=== PATIENT | female | born 1950 | race Caucasian/White ===

== ENCOUNTER 2022-09-17 19:16 | Emergency (ER) | payer MEDICARE ==
[2022-09-17 20:46] LABS: #Eosinphils 0.1 10x3/uL (0.0-0.5); #Monocytes 0.4 10x3/uL (0.0-1.1); #Neutrophils 5.7 10x3/uL (1.5-8.4); %Basophils 0.4 % (0.0-2.0); %Lymphocytes 8.2 % (18.0-47.0); %Monocytes 5.7 % (0.0-10.0); %Neutrophils 84.4 % (40.0-75.0); Hemoglobin 10.6 g/dL (12.0-15.5); Mean Corpuscular HGB CONC 32.2 g/dL (32.0-36.0); Mean Corpuscular Hemoglobin 28.6 pg (27.0-33.0); Mean Corpuscular Volume 88.7 fl (81.6-98.3); Mean Platelet Volume 9.9 fl (7.4-10.4); Platelet Count 200 10x3/uL (150-450); RBC Distribution Width 14.9 % (11.5-14.5); Red Blood Cell (RBC) Count 3.71 10x6/uL (3.90-5.03); White Blood Cell (WBC) Count 6.7 10x3/uL (3.5-10.5)
[2022-09-17 20:58] LABS: ALT (SGPT) 33 U/L (8-55); AST (SGOT) 41 U/L (5-34); Alkaline Phosphatase 229 U/L (40-110); Anion Gap 14 mmol/L (10-20); BUN (Urea Nitrogen) 24 mg/dL (9.8-20.1); Bilirubin, Total 0.9 mg/dL (0.2-1.2); Calc. Creatinine Clearance 0 mL/min (70-130); Calcium 8.7 mg/dL (7.8-10.44); Carbon Dioxide 27 mmol/L (23-31); Chloride 101 mmol/L (98-107); Estimated GFR 46; Globulin 3.3 g/dL (2.4-3.5); Glucose 102 mg/dL (83-110); Magnesium 2.3 mg/dL (1.6-2.6); Potassium 3.8 mmol/L (3.5-5.1); Protein, Total 7.3 g/dL (5.8-8.1); Sodium 138 mmol/L (136-145)
== END 2022-09-17 22:43 | disposition home or self-care (01) ==
LOC: CSHERS 19:16
DX: R55 Syncope and collapse (principal); R53.1 Weakness; E11.9 Type 2 diabetes mellitus without complications; Z79.4 Long term (current) use of insulin
CPT/HCPCS: 36415; 71045; 72170; 80053; 83735; 83880; 84484; 85025; 93005

== ENCOUNTER 2022-09-20 18:24 | Observation (INO) | payer MEDICARE ==
[2022-09-20] MEDS ORDERED: Milk Of Magnesia 30 ML UDCUP PO PRN (19:45)
[2022-09-20] MEDS ORDERED: Melatonin 3 MG TAB PO PRN (19:45)
[2022-09-20] MEDS ORDERED: Acetaminophen 325 MG TAB PO PRN (19:45)
[2022-09-20] MEDS ORDERED: Calcium Carbonate 500 MG ChewTAB PO PRN (19:45)
[2022-09-20] MEDS ORDERED: Dextrose 50% Abboject 50 ML SYRINGE SLOW IVP PRN (19:51)
[2022-09-20] MEDS ORDERED: Dextrose 5% in Water 1,000 ML IV PRN (19:51)
[2022-09-20] MEDS ORDERED: Furosemide 40 MG/4 ML VIAL SLOW IVP SCH (20:00)
[2022-09-20] MEDS: Lantus 1000 UNITS/10 ML VIAL SC SCH (21:39)
[2022-09-20] MEDS: Atorvastatin Calcium 20 MG TAB PO SCH (21:41)
[2022-09-20 23:43] LABS: Troponin I 0.015 ng/mL (< 0.028)
[2022-09-21 05:56] LABS: #Eosinphils 0.2 10x3/uL (0.0-0.5); #Monocytes 0.6 10x3/uL (0.0-1.1); #Neutrophils 4.7 10x3/uL (1.5-8.4); %Basophils 0.5 % (0.0-2.0); %Eosinophils 2.3 % (0.0-6.0); %Lymphocytes 14.2 % (18.0-47.0); %Monocytes 9.7 % (0.0-10.0); Mean Corpuscular HGB CONC 32.4 g/dL (32.0-36.0); Mean Corpuscular Hemoglobin 28.3 pg (27.0-33.0); Mean Corpuscular Volume 87.5 fl (81.6-98.3); Mean Platelet Volume 10.2 fl (7.4-10.4); Platelet Count 212 10x3/uL (150-450); Red Blood Cell (RBC) Count 3.53 10x6/uL (3.90-5.03); White Blood Cell (WBC) Count 6.5 10x3/uL (3.5-10.5)
[2022-09-21 06:02] LABS: Anion Gap 15 mmol/L (10-20); BUN (Urea Nitrogen) 24 mg/dL (9.8-20.1); Calc. Creatinine Clearance 58 mL/min (70-130); Calcium 8.6 mg/dL (7.8-10.44); Carbon Dioxide 25 mmol/L (23-31); Cardiac Risk 2.8 (Less than 4.5); Chloride 105 mmol/L (98-107); Cholesterol 116 mg/dl (< 200 Desired); Estimated GFR 58; Glucose 126 mg/dL (83-110); HDL Cholesterol 42 mg/dL (>60 Neg Risk); LDL Cholesterol, Calculated 58 mg/dL; Magnesium 2.3 mg/dL (1.6-2.6); Potassium 4.1 mmol/L (3.5-5.1); Sodium 141 mmol/L (136-145); Triglycerides 78 mg/dL (Less than 150)
[2022-09-21] MEDS ORDERED: Lantus 1000 UNITS/10 ML VIAL SC SCH (09:00)
[2022-09-21] MEDS ORDERED: FLU VACC QS2022-23(65YR UP)/PF 240 MCG/0.7 ML SYRINGE IM ONE (09:00)
[2022-09-21] MEDS: Aspirin 81 mg Enteric Coated Tablet PO SCH (09:47)
[2022-09-21] MEDS: Enoxaparin Sodium 40 MG/0.4 ML SYRINGE SC SCH (09:47)
[2022-09-21] MEDS: Carvedilol 6.25 MG TAB PO SCH ×2 (09:48→17:10)
[2022-09-21] MEDS: Clopidogrel Bisulfate 75 MG TAB PO SCH (09:48)
[2022-09-21] MEDS: Dronedarone HCl 400 MG TAB PO SCH ×2 (09:48→17:10)
[2022-09-21] MEDS: Furosemide 40 MG TAB PO SCH (09:49)
[2022-09-21] MEDS: Losartan Potassium 50 MG TAB PO SCH (09:49)
[2022-09-21 12:36] LABS: Hemoglobin A1c 8.6 % (4.0-6.0)
[2022-09-21] MEDS: cefTRIAXone\\ROCEPHIN 1 GM in Sodium Chloride 0.9% 100 ML IVPB SCH (13:59)
[2022-09-21] MEDS: Atorvastatin Calcium 20 MG TAB PO SCH (19:56)
[2022-09-21] MEDS: Lantus 1000 UNITS/10 ML VIAL SC SCH (19:57)
[2022-09-21] MEDS ORDERED: HumaLOG 300 UNITS/3 ML VIAL SC PRN (23:06)
[2022-09-21] MEDS ORDERED: Dextrose 5% in Water 1,000 ML IV PRN (23:06)
[2022-09-21] MEDS ORDERED: Dextrose 50% Abboject 50 ML SYRINGE SLOW IVP PRN (23:06)
[2022-09-22] MEDS: Dronedarone HCl 400 MG TAB PO SCH (08:34)
[2022-09-22] MEDS: Losartan Potassium 50 MG TAB PO SCH (08:35)
[2022-09-22] MEDS: Carvedilol 6.25 MG TAB PO SCH (08:35)
[2022-09-22] MEDS: Enoxaparin Sodium 40 MG/0.4 ML SYRINGE SC SCH (08:35)
[2022-09-22] MEDS: Aspirin 81 mg Enteric Coated Tablet PO SCH (08:35)
[2022-09-22] MEDS: Clopidogrel Bisulfate 75 MG TAB PO SCH (08:36)
[2022-09-22] MEDS: Furosemide 40 MG TAB PO SCH (08:36)
[2022-09-22] MEDS ORDERED: Lantus 1000 UNITS/10 ML VIAL SC SCH (09:00)
[2022-09-22] MEDS ORDERED: Iopamidol 370 76% 100 ML VIAL ONE (09:29)
[2022-09-22] MEDS: cefTRIAXone\\ROCEPHIN 1 GM in Sodium Chloride 0.9% 100 ML IVPB SCH (14:06)
[2022-09-22 15:22] LABS: SARS-CoV-2 NAA Rapid Test Not Detected (NotDetected)
[2022-09-22 16:39] VITALS: BP 144/67; TEMP 97.6
[2022-09-23] MEDS ORDERED: Losartan Potassium 50 MG TAB PO SCH (09:00)
== END 2022-09-22 17:20 | disposition home or self-care (01) ==
LOC: CSHTELE 18:24 → INTOOBSV 18:24
PROVIDERS: ADMIT Family Medicine; ATTEND Family Medicine
DX: R55 Syncope and collapse (principal); I25.10 Atherosclerotic heart disease of native coronary artery without angina pectoris; I65.23 Occlusion and stenosis of bilateral carotid arteries; I27.20 Pulmonary hypertension, unspecified; I13.10 Hypertensive heart and chronic kidney disease without heart failure, with stage 1 through stage 4 chronic kidney disease, or unspecified chronic kidney disease; E11.22 Type 2 diabetes mellitus with diabetic chronic kidney disease; N18.31 Chronic kidney disease, stage 3a; E11.51 Type 2 diabetes mellitus with diabetic peripheral angiopathy without gangrene; D63.1 Anemia in chronic kidney disease; E78.5 Hyperlipidemia, unspecified; I48.0 Paroxysmal atrial fibrillation; N39.0 Urinary tract infection, site not specified; Z20.822 Contact with and (suspected) exposure to COVID-19; Z79.82 Long term (current) use of aspirin; Z79.02 Long term (current) use of antithrombotics/antiplatelets; Z79.899 Other long term (current) drug therapy; Z79.4 Long term (current) use of insulin; Z88.8 Allergy status to other drugs, medicaments and biological substances; Z95.0 Presence of cardiac pacemaker; Z86.73 Personal history of transient ischemic attack (TIA), and cerebral infarction without residual deficits
CPT/HCPCS: 70498; 80048; 80061; 82962 ×3; 83036; 83735; 84443; 84484; 85025; 93005; 93880; 94760; U0002; 36415; 36416; 93010; 96372; 96374; 96376; G0378; J0696; J1650; J1815; J3490; Q9967

== ENCOUNTER 2022-11-30 19:48 | Inpatient (IN) | payer MEDICARE ==
[2022-11-30 20:40] VITALS: BMI 32.2
[2022-11-30] MEDS ORDERED: Furosemide 100 MG/10 ML VIAL SLOW IVP SCH (20:45)
[2022-11-30] MEDS ORDERED: Potassium Chloride 20 MEQ TAB PO SCH (20:45)
[2022-11-30] MEDS: Aspirin Chewable 81 MG TAB PO SCH (21:11)
[2022-11-30] MEDS: Losartan Potassium 50 MG TAB PO SCH (21:14)
[2022-11-30] MEDS: Clopidogrel Bisulfate 75 MG TAB PO SCH (21:14)
[2022-11-30] MEDS: Carvedilol 6.25 MG TAB PO SCH (21:14)
[2022-11-30] MEDS: Atorvastatin Calcium 20 MG TAB PO SCH (21:15)
[2022-11-30 22:50] LABS: SARS-CoV-2 NAA Rapid Test Not Detected (NotDetected)
[2022-12-01] MEDS ORDERED: Dextrose 50% Abboject 50 ML SYRINGE ONE (05:08)
[2022-12-01 05:10] LABS: #Eosinphils 0.2 10x3/uL (0.0-0.5); #Monocytes 0.8 10x3/uL (0.0-1.1); #Neutrophils 4.7 10x3/uL (1.5-8.4); %Basophils 0.5 % (0.0-2.0); %Eosinophils 2.7 % (0.0-6.0); %Lymphocytes 22.1 % (18.0-47.0); %Monocytes 10.4 % (0.0-10.0); Hemoglobin 12.4 g/dL (12.0-15.5); Mean Corpuscular HGB CONC 31.3 g/dL (32.0-36.0); Mean Corpuscular Hemoglobin 27.7 pg (27.0-33.0); Mean Corpuscular Volume 88.6 fl (81.6-98.3); Platelet Count 282 10x3/uL (150-450); RBC Distribution Width 15.2 % (11.5-14.5); Red Blood Cell (RBC) Count 4.47 10x6/uL (3.90-5.03); White Blood Cell (WBC) Count 7.4 10x3/uL (3.5-10.5)
[2022-12-01 05:22] LABS: Anion Gap 18 mmol/L (10-20); BUN (Urea Nitrogen) 19 mg/dL (9.8-20.1); Calc. Creatinine Clearance 63 mL/min (70-130); Calcium 9.3 mg/dL (7.8-10.44); Carbon Dioxide 29 mmol/L (23-31); Chloride 99 mmol/L (98-107); Estimated GFR 64; Magnesium 2.6 mg/dL (1.6-2.6); Potassium 4.4 mmol/L (3.5-5.1); Sodium 142 mmol/L (136-145)
[2022-12-01] MEDS ORDERED: Dextrose 50% Abboject 50 ML SYRINGE SLOW IVP SCH (05:30)
[2022-12-01 05:39] LABS: Glucose 33 mg/dL (83-110)
[2022-12-01] MEDS ORDERED: Furosemide 100 MG/10 ML VIAL SLOW IVP SCH (06:00)
[2022-12-01] MEDS: Carvedilol 6.25 MG TAB PO SCH ×2 (10:30→20:50)
[2022-12-01] MEDS: Sildenafil Citrate 20 MG TAB PO SCH ×3 (10:30→21:23)
[2022-12-01] MEDS: Dronedarone HCl 400 MG TAB PO SCH ×2 (10:30→16:50)
[2022-12-01] MEDS ORDERED: Dextrose 5% in Water 1,000 ML IV PRN (14:30)
[2022-12-01] MEDS ORDERED: Dextrose 50% Abboject 50 ML SYRINGE SLOW IVP PRN (14:30)
[2022-12-01] MEDS: Furosemide 40 MG/4 ML VIAL SLOW IVP SCH (14:50)
[2022-12-01] MEDS: Insulin Regular 300 UNITS/3 ML VIAL SC PRN ×2 (14:51→20:50)
[2022-12-01] MEDS ORDERED: Polyethylene Glycol 3350 17 GM Packet PO PRN (17:15)
[2022-12-01 18:10] LABS: Bilirubin Neg (Negative); Blood, Urine 25 (Negative); Clarity Clear (Clear); Glucose, Urine (Dipstick) 250 mg/dL (Negative); Ketone, Urine Negative (Negative); Leukocyte Negative (Negative); Nitrite Negative (Negative); Protein, Urine (Dipstick) 15 mg/dl (Neg-Trace); Urobilinogen Normal mg/dL (Less than 2)
[2022-12-01 18:21] LABS: RBC/HPF 0-3 HPF (0-3); Squamous Epithelial 0-3 HPF (0-3); WBC/HPF 0-3 HPF (0-3)
[2022-12-01 18:22] LABS: Bacteria/HPF None Seen HPF (None Seen)
[2022-12-01] MEDS: Atorvastatin Calcium 20 MG TAB PO SCH (20:49)
[2022-12-01] MEDS: Heparin 5,000 UNITS/ML VIAL SC SCH (20:49)
[2022-12-01] MEDS: Multivit, Therapeutic 1 TAB PO SCH (20:50)
[2022-12-01] MEDS: Losartan Potassium 50 MG TAB PO SCH (20:51)
[2022-12-01] MEDS: Clopidogrel Bisulfate 75 MG TAB PO SCH (20:51)
[2022-12-01] MEDS: Aspirin Chewable 81 MG TAB PO SCH (20:51)
[2022-12-01] MEDS: Senokot S 8.6-50 MG TAB PO SCH (21:23)
[2022-12-02] MEDS: Insulin Regular 300 UNITS/3 ML VIAL SC PRN ×4 (00:20→23:37)
[2022-12-02] MEDS: Furosemide 40 MG/4 ML VIAL SLOW IVP SCH ×2 (05:28→14:27)
[2022-12-02 06:06] LABS: ALT (SGPT) 12 U/L (8-55); AST (SGOT) 19 U/L (5-34); Albumin 3.7 g/dL (3.4-4.8); Alkaline Phosphatase 210 U/L (40-110); Anion Gap 15 mmol/L (10-20); BUN (Urea Nitrogen) 25 mg/dL (9.8-20.1); Bilirubin, Total 0.9 mg/dL (0.2-1.2); Calc. Creatinine Clearance 49 mL/min (70-130); Calcium 8.9 mg/dL (7.8-10.44); Carbon Dioxide 33 mmol/L (23-31); Chloride 95 mmol/L (98-107); Estimated GFR 47; Globulin 3.2 g/dL (2.4-3.5); Glucose 223 mg/dL (83-110); Magnesium 2.2 mg/dL (1.6-2.6); Potassium 4.2 mmol/L (3.5-5.1); Protein, Total 6.9 g/dL (5.8-8.1); Sodium 139 mmol/L (136-145)
[2022-12-02 06:09] LABS: #Eosinphils 0.1 10x3/uL (0.0-0.5); #Monocytes 0.5 10x3/uL (0.0-1.1); #Neutrophils 5.9 10x3/uL (1.5-8.4); %Basophils 0.3 % (0.0-2.0); %Eosinophils 1.9 % (0.0-6.0); %Lymphocytes 11.4 % (18.0-47.0); %Monocytes 7.1 % (0.0-10.0); Hemoglobin 11.2 g/dL (12.0-15.5); Mean Corpuscular HGB CONC 31.1 g/dL (32.0-36.0); Mean Corpuscular Hemoglobin 27.7 pg (27.0-33.0); Mean Corpuscular Volume 89.1 fl (81.6-98.3); Mean Platelet Volume 10.1 fl (7.4-10.4); Platelet Count 242 10x3/uL (150-450); RBC Distribution Width 15.3 % (11.5-14.5); Red Blood Cell (RBC) Count 4.04 10x6/uL (3.90-5.03); White Blood Cell (WBC) Count 7.5 10x3/uL (3.5-10.5)
[2022-12-02] MEDS: Carvedilol 6.25 MG TAB PO SCH ×2 (08:06→23:37)
[2022-12-02] MEDS: Dronedarone HCl 400 MG TAB PO SCH ×2 (08:06→17:17)
[2022-12-02] MEDS: Senokot S 8.6-50 MG TAB PO SCH ×2 (08:06→23:38)
[2022-12-02] MEDS: Heparin 5,000 UNITS/ML VIAL SC SCH ×2 (08:06→23:36)
[2022-12-02] MEDS: Sildenafil Citrate 20 MG TAB PO SCH ×3 (08:06→23:37)
[2022-12-02] MEDS ORDERED: Lantus 1000 UNITS/10 ML VIAL SC SCH (14:00)
[2022-12-02] MEDS: Clopidogrel Bisulfate 75 MG TAB PO SCH (23:37)
[2022-12-02] MEDS: Atorvastatin Calcium 20 MG TAB PO SCH (23:37)
[2022-12-02] MEDS: Aspirin Chewable 81 MG TAB PO SCH (23:38)
[2022-12-02] MEDS: Multivit, Therapeutic 1 TAB PO SCH (23:38)
[2022-12-02] MEDS ORDERED: Acetaminophen 325 MG TAB PO SCH (23:45)
[2022-12-03 05:27] LABS: Anion Gap 15 mmol/L (10-20); BUN (Urea Nitrogen) 30 mg/dL (9.8-20.1); Calc. Creatinine Clearance 43 mL/min (70-130); Calcium 8.9 mg/dL (7.8-10.44); Carbon Dioxide 33 mmol/L (23-31); Chloride 93 mmol/L (98-107); Estimated GFR 40; Glucose 316 mg/dL (83-110); Potassium 4.2 mmol/L (3.5-5.1); Sodium 137 mmol/L (136-145)
[2022-12-03 05:36] LABS: #Eosinphils 0.1 10x3/uL (0.0-0.5); #Monocytes 0.6 10x3/uL (0.0-1.1); #Neutrophils 5.5 10x3/uL (1.5-8.4); %Basophils 0.4 % (0.0-2.0); %Eosinophils 1.3 % (0.0-6.0); %Lymphocytes 10.3 % (18.0-47.0); %Monocytes 8.3 % (0.0-10.0); %Neutrophils 79.3 % (40.0-75.0); Hemoglobin 10.8 g/dL (12.0-15.5); Mean Corpuscular HGB CONC 30.9 g/dL (32.0-36.0); Mean Corpuscular Hemoglobin 27.7 pg (27.0-33.0); Mean Corpuscular Volume 89.5 fl (81.6-98.3); Platelet Count 248 10x3/uL (150-450); RBC Distribution Width 15.4 % (11.5-14.5)
[2022-12-03] MEDS: Furosemide 40 MG/4 ML VIAL SLOW IVP SCH ×2 (06:42→13:49)
[2022-12-03] MEDS: Insulin Regular 300 UNITS/3 ML VIAL SC PRN ×4 (06:43→22:59)
[2022-12-03] MEDS: Heparin 5,000 UNITS/ML VIAL SC SCH ×2 (08:23→23:12)
[2022-12-03] MEDS: Dronedarone HCl 400 MG TAB PO SCH ×2 (08:27→16:06)
[2022-12-03] MEDS: Sildenafil Citrate 20 MG TAB PO SCH ×3 (08:28→23:15)
[2022-12-03] MEDS: Senokot S 8.6-50 MG TAB PO SCH ×2 (08:28→23:03)
[2022-12-03] MEDS: Carvedilol 6.25 MG TAB PO SCH ×2 (08:28→23:03)
[2022-12-03] MEDS ORDERED: Lantus 1000 UNITS/10 ML VIAL SC SCH (09:00)
[2022-12-03] MEDS: Furosemide 40 MG TAB PO SCH (14:11)
[2022-12-03] MEDS: Lidocaine 5% Patch TD SCH (14:11)
[2022-12-03] MEDS ORDERED: Acetaminophen 325 MG TAB PO SCH (19:45)
[2022-12-03] MEDS: Aspirin Chewable 81 MG TAB PO SCH (23:02)
[2022-12-03] MEDS: Atorvastatin Calcium 20 MG TAB PO SCH (23:02)
[2022-12-03] MEDS: Multivit, Therapeutic 1 TAB PO SCH (23:03)
[2022-12-03] MEDS: Clopidogrel Bisulfate 75 MG TAB PO SCH (23:03)
[2022-12-04] MEDS: Transdermal Patch Removal TOP SCH (02:45)
[2022-12-04] MEDS: Acetaminophen 325 MG TAB PO PRN ×2 (06:39→16:56)
[2022-12-04 07:36] LABS: #Eosinphils 0.2 10x3/uL (0.0-0.5); #Monocytes 0.6 10x3/uL (0.0-1.1); %Basophils 0.4 % (0.0-2.0); %Eosinophils 2.4 % (0.0-6.0); %Lymphocytes 8.5 % (18.0-47.0); %Monocytes 7.6 % (0.0-10.0); %Neutrophils 80.8 % (40.0-75.0); Hemoglobin 11.3 g/dL (12.0-15.5); Mean Corpuscular HGB CONC 30.9 g/dL (32.0-36.0); Mean Corpuscular Volume 90.6 fl (81.6-98.3); Mean Platelet Volume 10.1 fl (7.4-10.4); Platelet Count 230 10x3/uL (150-450); RBC Distribution Width 15.1 % (11.5-14.5); Red Blood Cell (RBC) Count 4.04 10x6/uL (3.90-5.03); White Blood Cell (WBC) Count 7.4 10x3/uL (3.5-10.5)
[2022-12-04 07:41] LABS: Anion Gap 15 mmol/L (10-20); BUN (Urea Nitrogen) 29 mg/dL (9.8-20.1); Calc. Creatinine Clearance 49 mL/min (70-130); Calcium 9.3 mg/dL (7.8-10.44); Carbon Dioxide 36 mmol/L (23-31); Chloride 93 mmol/L (98-107); Estimated GFR 47; Glucose 157 mg/dL (83-110); Sodium 140 mmol/L (136-145)
[2022-12-04] MEDS: Dronedarone HCl 400 MG TAB PO SCH ×2 (08:29→16:06)
[2022-12-04] MEDS: Furosemide 40 MG TAB PO SCH ×2 (08:30→13:45)
[2022-12-04] MEDS: Carvedilol 6.25 MG TAB PO SCH ×2 (08:31→21:12)
[2022-12-04] MEDS: Sildenafil Citrate 20 MG TAB PO SCH ×3 (08:32→21:08)
[2022-12-04] MEDS: Senokot S 8.6-50 MG TAB PO SCH ×2 (08:33→21:08)
[2022-12-04] MEDS: Heparin 5,000 UNITS/ML VIAL SC SCH ×2 (08:35→21:10)
[2022-12-04] MEDS: Insulin Regular 300 UNITS/3 ML VIAL SC PRN ×3 (11:26→22:32)
[2022-12-04] MEDS: Lidocaine 5% Patch TD SCH (13:44)
[2022-12-04] MEDS: HumaLOG 300 UNITS/3 ML VIAL SC SCH ×3 (17:20→18:04)
[2022-12-04] MEDS: Aspirin Chewable 81 MG TAB PO SCH (21:08)
[2022-12-04] MEDS: Atorvastatin Calcium 20 MG TAB PO SCH (21:08)
[2022-12-04] MEDS: Clopidogrel Bisulfate 75 MG TAB PO SCH (21:08)
[2022-12-04] MEDS: Multivit, Therapeutic 1 TAB PO SCH (21:09)
[2022-12-05] MEDS: Acetaminophen 325 MG TAB PO PRN ×2 (02:09→07:15)
[2022-12-05] MEDS: Transdermal Patch Removal TOP SCH (02:11)
[2022-12-05] MEDS: Insulin Regular 300 UNITS/3 ML VIAL SC PRN (04:58)
[2022-12-05 09:12] LABS: Anion Gap 15 mmol/L (10-20); BUN (Urea Nitrogen) 38 mg/dL (9.8-20.1); Calc. Creatinine Clearance 36 mL/min (70-130); Calcium 9.1 mg/dL (7.8-10.44); Carbon Dioxide 37 mmol/L (23-31); Chloride 90 mmol/L (98-107); Estimated GFR 33; Glucose 234 mg/dL (83-110); Potassium 4.2 mmol/L (3.5-5.1); Sodium 138 mmol/L (136-145)
[2022-12-05] MEDS: Furosemide 40 MG TAB PO SCH ×2 (09:22→13:16)
[2022-12-05] MEDS: Lidocaine 5% Patch TD SCH (09:23)
[2022-12-05] MEDS: Senokot S 8.6-50 MG TAB PO SCH (09:23)
[2022-12-05] MEDS: Dronedarone HCl 400 MG TAB PO SCH ×2 (09:23→16:13)
[2022-12-05] MEDS: Carvedilol 3.125 MG TAB PO SCH ×2 (09:23→16:13)
[2022-12-05] MEDS: Sildenafil Citrate 20 MG TAB PO SCH ×2 (09:23→14:22)
[2022-12-05] MEDS: Heparin 5,000 UNITS/ML VIAL SC SCH (09:24)
[2022-12-05] MEDS ORDERED: HumaLOG 300 UNITS/3 ML VIAL SC PRN ×2 (11:15)
[2022-12-05] MEDS: HumaLOG 300 UNITS/3 ML VIAL SC SCH ×2 (11:17→16:13)
[2022-12-05 15:45] VITALS: BP 134/57; TEMP 98.2
[2022-12-06] MEDS ORDERED: Lantus 1000 UNITS/10 ML VIAL SC SCH (09:00)
== END 2022-12-05 17:00 | disposition home health service (06) | DRG 291 ==
LOC: CSHTELE 19:48 → OBSVTOIN 12-02 10:19
PROVIDERS: ADMIT Family Medicine; ATTEND Family Medicine
DX: I13.0 Hypertensive heart and chronic kidney disease with heart failure and stage 1 through stage 4 chronic kidney disease, or unspecified chronic kidney disease (principal); I50.33 Acute on chronic diastolic (congestive) heart failure; J96.01 Acute respiratory failure with hypoxia; I25.10 Atherosclerotic heart disease of native coronary artery without angina pectoris; E11.51 Type 2 diabetes mellitus with diabetic peripheral angiopathy without gangrene; E11.22 Type 2 diabetes mellitus with diabetic chronic kidney disease; N18.31 Chronic kidney disease, stage 3a; Z60.2 Problems related to living alone; I48.0 Paroxysmal atrial fibrillation; E78.5 Hyperlipidemia, unspecified; D50.9 Iron deficiency anemia, unspecified; E66.01 Morbid (severe) obesity due to excess calories; I27.20 Pulmonary hypertension, unspecified; E11.649 Type 2 diabetes mellitus with hypoglycemia without coma; Z95.5 Presence of coronary angioplasty implant and graft; Z95.0 Presence of cardiac pacemaker; Z86.73 Personal history of transient ischemic attack (TIA), and cerebral infarction without residual deficits; Z79.4 Long term (current) use of insulin; Z90.89 Acquired absence of other organs; Z83.3 Family history of diabetes mellitus; Z82.49 Family history of ischemic heart disease and other diseases of the circulatory system; Z88.6 Allergy status to analgesic agent; Z79.82 Long term (current) use of aspirin; Z79.899 Other long term (current) drug therapy; Z79.02 Long term (current) use of antithrombotics/antiplatelets; Z91.14 Patient's other noncompliance with medication regimen; Z88.8 Allergy status to other drugs, medicaments and biological substances; Z68.32 Body mass index [BMI] 32.0-32.9, adult
CPT/HCPCS: 36415; 36416; 71045; 80048; 80053; 81001; 83735; 83880; 84443; 84484; 85025; 85379; 93005; 93010; 93306; 94760; 96374; 96375; 96376; 97139; G0378; J1644; J1815; J1940; J7999; U0002

== ENCOUNTER 2022-12-06 03:38 | Inpatient (IN) | payer MEDICARE ==
[2022-12-06 04:08] LABS: #Monocytes 0.3 10x3/uL (0.0-1.1); %Basophils 0.1 % (0.0-2.0); %Lymphocytes 3.3 % (18.0-47.0); %Neutrophils 92.9 % (40.0-75.0); Mean Corpuscular Hemoglobin 27.7 pg (27.0-33.0); Mean Corpuscular Volume 89.4 fl (81.6-98.3); Mean Platelet Volume 10.7 fl (7.4-10.4); Platelet Count 235 10x3/uL (150-450); RBC Distribution Width 15.1 % (11.5-14.5); Red Blood Cell (RBC) Count 3.97 10x6/uL (3.90-5.03); White Blood Cell (WBC) Count 9.7 10x3/uL (3.5-10.5)
[2022-12-06 04:23] LABS: ALT (SGPT) 46 U/L (8-55); AST (SGOT) 58 U/L (5-34); Albumin 3.7 g/dL (3.4-4.8); Alkaline Phosphatase 221 U/L (40-110); Anion Gap 21 mmol/L (10-20); BUN (Urea Nitrogen) 53 mg/dL (9.8-20.1); Bilirubin, Total 1.9 mg/dL (0.2-1.2); Calc. Creatinine Clearance 0 mL/min (70-130); Calcium 8.4 mg/dL (7.8-10.44); Carbon Dioxide 28 mmol/L (23-31); Chloride 90 mmol/L (98-107); Estimated GFR 22; Magnesium 2.2 mg/dL (1.6-2.6); Potassium 5.1 mmol/L (3.5-5.1); Protein, Total 6.7 g/dL (5.8-8.1); Sodium 134 mmol/L (136-145)
[2022-12-06 04:27] LABS: Glucose 544 mg/dL (83-110)
[2022-12-06] MEDS ORDERED: INSULIN REGULAR IN 0.9 % NACL 100 UNIT/100 ML BAG ONE (04:35)
[2022-12-06 04:42] LABS: Bilirubin Neg (Negative); Blood, Urine Negative (Negative); Glucose, Urine (Dipstick) 100 mg/dL (Negative); Ketone, Urine 5 mg/dL (Negative); Leukocyte 25 (Negative); Nitrite Negative (Negative); Protein, Urine (Dipstick) 30 mg/dl (Neg-Trace)
[2022-12-06 04:43] LABS: Clarity Hazy (Clear)
[2022-12-06] MEDS ORDERED: Aspirin Chewable 81 MG TAB ONE (04:43)
[2022-12-06 04:48] LABS: CKMB 1.1 ng/mL (0-6.6)
[2022-12-06 04:51] LABS: Bacteria/HPF 1+ HPF (None Seen); RBC/HPF 0-3 HPF (0-3); WBC/HPF 0-3 HPF (0-3)
[2022-12-06] MEDS ORDERED: Calcium Carbonate 500 MG ChewTAB PO PRN (05:14)
[2022-12-06] MEDS ORDERED: Ondansetron PF 4 MG/2 ML Vial IVP PRN (05:14)
[2022-12-06] MEDS ORDERED: Senokot S 8.6-50 MG TAB PO PRN (05:14)
[2022-12-06] MEDS ORDERED: Dextrose 5 %-0.45 % NaCl 1,000 ML IV SCH (05:30)
[2022-12-06] MEDS ORDERED: INSULIN REGULAR IN 0.9 % NACL 100 UNIT in Premix Bag 1 BAG IVPB SCH (05:30)
[2022-12-06] MEDS ORDERED: Sodium Chloride 0.9% 1,000 ML IV SCH (05:30)
[2022-12-06 05:31] LABS: SARS-CoV-2 NAA Rapid Test Not Detected (NotDetected)
[2022-12-06] MEDS ORDERED: Sildenafil Citrate 20 MG TAB PO SCH ×3 (05:45→15:00)
[2022-12-06 06:00] VITALS: BMI 31.6
[2022-12-06] MEDS ORDERED: FLU VACC QS2022-23(65YR UP)/PF 240 MCG/0.7 ML SYRINGE IM ONE (06:30)
[2022-12-06] MEDS: Carvedilol 3.125 MG TAB PO SCH ×3 (07:59→18:15)
[2022-12-06] MEDS: Clopidogrel Bisulfate 75 MG TAB PO SCH (08:00)
[2022-12-06 08:55] LABS: Anion Gap 17 mmol/L (10-20); BUN (Urea Nitrogen) 52 mg/dL (9.8-20.1); Calc. Creatinine Clearance 28 mL/min (70-130); Calcium 8.3 mg/dL (7.8-10.44); Carbon Dioxide 28 mmol/L (23-31); Chloride 93 mmol/L (98-107); Estimated GFR 25; Glucose 372 mg/dL (83-110); Magnesium 2.1 mg/dL (1.6-2.6); Sodium 134 mmol/L (136-145)
[2022-12-06] MEDS ORDERED: Aspirin 81 mg Enteric Coated Tablet PO SCH (09:00)
[2022-12-06] MEDS ORDERED: Famotidine 20 MG TAB PO SCH (09:00)
[2022-12-06] MEDS: Apixaban 5 MG TAB PO SCH ×2 (09:20→20:19)
[2022-12-06] MEDS: Dronedarone HCl 400 MG TAB PO SCH (09:24)
[2022-12-06 09:38] LABS: CKMB 1.9 ng/mL (0-6.6)
[2022-12-06] MEDS ORDERED: Chloraseptic Spray 180 ml Bottle PO PRN (11:13)
[2022-12-06] MEDS: Cepastat Lozenges 1 LOZ PO PRN ×4 (11:46→20:18)
[2022-12-06 12:49] LABS: Anion Gap 15 mmol/L (10-20); BUN (Urea Nitrogen) 54 mg/dL (9.8-20.1); Calc. Creatinine Clearance 29 mL/min (70-130); Calcium 8.3 mg/dL (7.8-10.44); Carbon Dioxide 31 mmol/L (23-31); Chloride 96 mmol/L (98-107); Estimated GFR 26; Glucose 149 mg/dL (83-110); Magnesium 2.1 mg/dL (1.6-2.6); Potassium 4.4 mmol/L (3.5-5.1); Sodium 138 mmol/L (136-145)
[2022-12-06 13:10] LABS: CKMB 2.3 ng/mL (0-6.6)
[2022-12-06] MEDS ORDERED: Dextrose 50% Abboject 50 ML SYRINGE SLOW IVP PRN (13:13)
[2022-12-06] MEDS ORDERED: Dextrose 5% in Water 1,000 ML IV PRN (13:13)
[2022-12-06] MEDS: Sodium Chloride 0.9% 1,000 ML IV SCH (13:19)
[2022-12-06] MEDS: Sildenafil Citrate 20 MG TAB PO SCH ×2 (14:54→20:23)
[2022-12-06 16:27] LABS: Anion Gap 13 mmol/L (10-20); BUN (Urea Nitrogen) 53 mg/dL (9.8-20.1); Calc. Creatinine Clearance 32 mL/min (70-130); Calcium 8.5 mg/dL (7.8-10.44); Carbon Dioxide 32 mmol/L (23-31); Chloride 95 mmol/L (98-107); Estimated GFR 29; Glucose 87 mg/dL (83-110); Magnesium 2.1 mg/dL (1.6-2.6); Potassium 4.3 mmol/L (3.5-5.1); Sodium 136 mmol/L (136-145)
[2022-12-06] MEDS: Guaifenesin DM 100-10/5 ML UDCUP PO PRN (20:17)
[2022-12-06] MEDS: Acetaminophen 325 MG TAB PO PRN (20:18)
[2022-12-06] MEDS: Atorvastatin Calcium 20 MG TAB PO SCH (20:19)
[2022-12-06] MEDS: HumaLOG 300 UNITS/3 ML VIAL SC PRN (20:19)
[2022-12-06] MEDS: Lantus 1000 UNITS/10 ML VIAL SC SCH (20:21)
[2022-12-06 21:18] LABS: Anion Gap 17 mmol/L (10-20); BUN (Urea Nitrogen) 52 mg/dL (9.8-20.1); Calc. Creatinine Clearance 32 mL/min (70-130); Calcium 8.6 mg/dL (7.8-10.44); Carbon Dioxide 26 mmol/L (23-31); Chloride 95 mmol/L (98-107); Estimated GFR 29; Glucose 208 mg/dL (83-110); Magnesium 2.1 mg/dL (1.6-2.6); Potassium 4.5 mmol/L (3.5-5.1); Sodium 133 mmol/L (136-145)
[2022-12-07 04:08] LABS: ALT (SGPT) 69 U/L (8-55); AST (SGOT) 81 U/L (5-34); Albumin 3.2 g/dL (3.4-4.8); Alkaline Phosphatase 179 U/L (40-110); Anion Gap 14 mmol/L (10-20); BUN (Urea Nitrogen) 51 mg/dL (9.8-20.1); Calc. Creatinine Clearance 36 mL/min (70-130); Calcium 8.5 mg/dL (7.8-10.44); Carbon Dioxide 30 mmol/L (23-31); Chloride 96 mmol/L (98-107); Estimated GFR 34; Globulin 3.1 g/dL (2.4-3.5); Glucose 136 mg/dL (83-110); Potassium 4.3 mmol/L (3.5-5.1); Protein, Total 6.3 g/dL (5.8-8.1); Sodium 136 mmol/L (136-145)
[2022-12-07 04:09] LABS: #Eosinphils 0.1 10x3/uL (0.0-0.5); #Monocytes 0.6 10x3/uL (0.0-1.1); #Neutrophils 7.9 10x3/uL (1.5-8.4); %Basophils 0.4 % (0.0-2.0); %Eosinophils 1.4 % (0.0-6.0); %Lymphocytes 8.9 % (18.0-47.0); %Monocytes 6.7 % (0.0-10.0); %Neutrophils 82.2 % (40.0-75.0); Mean Corpuscular HGB CONC 31.4 g/dL (32.0-36.0); Mean Corpuscular Hemoglobin 27.8 pg (27.0-33.0); Mean Corpuscular Volume 88.6 fl (81.6-98.3); Mean Platelet Volume 10.2 fl (7.4-10.4); Platelet Count 243 10x3/uL (150-450); RBC Distribution Width 15.2 % (11.5-14.5); Red Blood Cell (RBC) Count 3.95 10x6/uL (3.90-5.03); White Blood Cell (WBC) Count 9.6 10x3/uL (3.5-10.5)
[2022-12-07] MEDS: Cepastat Lozenges 1 LOZ PO PRN ×2 (05:47→14:19)
[2022-12-07] MEDS: Acetaminophen 325 MG TAB PO PRN ×3 (06:37→21:23)
[2022-12-07] MEDS: Lantus 1000 UNITS/10 ML VIAL SC SCH ×2 (08:58→21:25)
[2022-12-07] MEDS: Dronedarone HCl 400 MG TAB PO SCH (08:58)
[2022-12-07] MEDS: Empagliflozin 10 MG TAB PO SCH (08:59)
[2022-12-07] MEDS: Clopidogrel Bisulfate 75 MG TAB PO SCH (08:59)
[2022-12-07] MEDS: Famotidine 20 MG TAB PO SCH (08:59)
[2022-12-07] MEDS: Apixaban 5 MG TAB PO SCH ×2 (08:59→21:24)
[2022-12-07] MEDS: Sildenafil Citrate 20 MG TAB PO SCH ×3 (08:59→21:24)
[2022-12-07] MEDS: Sodium Chloride 0.9% 1,000 ML IV SCH (11:33)
[2022-12-07] MEDS: Furosemide 40 MG TAB PO SCH (14:14)
[2022-12-07] MEDS ORDERED: Guaifenesin DM 100-10/5 ML UDCUP ONE ×2 (14:18)
[2022-12-07] MEDS: Guaifenesin DM 100-10/5 ML UDCUP PO PRN ×2 (14:18→21:24)
[2022-12-07] MEDS: Atorvastatin Calcium 20 MG TAB PO SCH (21:24)
[2022-12-08 04:51] LABS: #Eosinphils 0.3 10x3/uL (0.0-0.5); #Monocytes 0.5 10x3/uL (0.0-1.1); #Neutrophils 6.3 10x3/uL (1.5-8.4); %Basophils 0.3 % (0.0-2.0); %Eosinophils 3.3 % (0.0-6.0); %Lymphocytes 9.3 % (18.0-47.0); %Monocytes 6.6 % (0.0-10.0); %Neutrophils 80.1 % (40.0-75.0); Hemoglobin 11.5 g/dL (12.0-15.5); Mean Corpuscular HGB CONC 30.6 g/dL (32.0-36.0); Mean Corpuscular Hemoglobin 27.4 pg (27.0-33.0); Mean Corpuscular Volume 89.7 fl (81.6-98.3); Mean Platelet Volume 10.2 fl (7.4-10.4); Platelet Count 285 10x3/uL (150-450); RBC Distribution Width 15.4 % (11.5-14.5); Red Blood Cell (RBC) Count 4.19 10x6/uL (3.90-5.03); White Blood Cell (WBC) Count 7.9 10x3/uL (3.5-10.5)
[2022-12-08 05:00] LABS: Anion Gap 13 mmol/L (10-20); BUN (Urea Nitrogen) 36 mg/dL (9.8-20.1); Calc. Creatinine Clearance 51 mL/min (70-130); Carbon Dioxide 35 mmol/L (23-31); Chloride 98 mmol/L (98-107); Estimated GFR 51; Glucose 71 mg/dL (83-110); Potassium 4.1 mmol/L (3.5-5.1); Sodium 142 mmol/L (136-145)
[2022-12-08] MEDS: Acetaminophen 325 MG TAB PO PRN ×3 (07:41→21:19)
[2022-12-08] MEDS: Lantus 1000 UNITS/10 ML VIAL SC SCH ×2 (11:36→22:55)
[2022-12-08] MEDS: HumaLOG 300 UNITS/3 ML VIAL SC PRN (11:37)
[2022-12-08] MEDS: Sildenafil Citrate 20 MG TAB PO SCH ×3 (11:40→21:19)
[2022-12-08] MEDS: Clopidogrel Bisulfate 75 MG TAB PO SCH (11:42)
[2022-12-08] MEDS: Furosemide 40 MG TAB PO SCH ×2 (11:42→13:42)
[2022-12-08] MEDS: Dronedarone HCl 400 MG TAB PO SCH (11:42)
[2022-12-08] MEDS: Famotidine 20 MG TAB PO SCH (11:42)
[2022-12-08] MEDS: Apixaban 5 MG TAB PO SCH ×2 (11:42→21:20)
[2022-12-08] MEDS: Empagliflozin 10 MG TAB PO SCH (11:42)
[2022-12-08] MEDS: Carvedilol 3.125 MG TAB PO SCH ×2 (11:43→16:12)
[2022-12-08] MEDS: Cepastat Lozenges 1 LOZ PO PRN (15:36)
[2022-12-08] MEDS: Benzonatate 100 MG CAP PO PRN (15:37)
[2022-12-08] MEDS: Atorvastatin Calcium 20 MG TAB PO SCH (21:19)
[2022-12-09 04:39] LABS: #Eosinphils 0.1 10x3/uL (0.0-0.5); #Monocytes 0.3 10x3/uL (0.0-1.1); #Neutrophils 7.8 10x3/uL (1.5-8.4); %Basophils 0.1 % (0.0-2.0); %Eosinophils 1.4 % (0.0-6.0); %Neutrophils 89.2 % (40.0-75.0); Hemoglobin 11.9 g/dL (12.0-15.5); Mean Corpuscular HGB CONC 31.3 g/dL (32.0-36.0); Mean Corpuscular Hemoglobin 27.7 pg (27.0-33.0); Mean Corpuscular Volume 88.6 fl (81.6-98.3); Mean Platelet Volume 9.9 fl (7.4-10.4); Platelet Count 299 10x3/uL (150-450); RBC Distribution Width 15.4 % (11.5-14.5); Red Blood Cell (RBC) Count 4.29 10x6/uL (3.90-5.03); White Blood Cell (WBC) Count 8.7 10x3/uL (3.5-10.5)
[2022-12-09 04:43] LABS: ALT (SGPT) 78 U/L (8-55); AST (SGOT) 62 U/L (5-34); Albumin 3.5 g/dL (3.4-4.8); Alkaline Phosphatase 198 U/L (40-110); BUN (Urea Nitrogen) 22 mg/dL (9.8-20.1); Bilirubin, Total 0.9 mg/dL (0.2-1.2); Calc. Creatinine Clearance 53 mL/min (70-130); Calcium 9.1 mg/dL (7.8-10.44); Estimated GFR 54; Globulin 3.4 g/dL (2.4-3.5); Glucose 76 mg/dL (83-110); Protein, Total 6.9 g/dL (5.8-8.1)
[2022-12-09 04:50] LABS: Anion Gap 18 mmol/L (10-20); Carbon Dioxide 36 mmol/L (23-31); Chloride 93 mmol/L (98-107); Potassium 3.5 mmol/L (3.5-5.1); Sodium 143 mmol/L (136-145)
[2022-12-09] MEDS: Dronedarone HCl 400 MG TAB PO SCH (09:08)
[2022-12-09] MEDS: Famotidine 20 MG TAB PO SCH (09:09)
[2022-12-09] MEDS: Furosemide 40 MG TAB PO SCH ×2 (09:10→14:19)
[2022-12-09] MEDS: Clopidogrel Bisulfate 75 MG TAB PO SCH (09:10)
[2022-12-09] MEDS: Carvedilol 3.125 MG TAB PO SCH ×2 (09:10→16:28)
[2022-12-09] MEDS: Sildenafil Citrate 20 MG TAB PO SCH ×3 (09:10→20:39)
[2022-12-09] MEDS: Apixaban 5 MG TAB PO SCH ×2 (09:10→20:39)
[2022-12-09] MEDS: Lantus 1000 UNITS/10 ML VIAL SC SCH ×2 (09:13→20:47)
[2022-12-09] MEDS: Empagliflozin 10 MG TAB PO SCH (09:51)
[2022-12-09] MEDS: Acetaminophen 325 MG TAB PO PRN (12:44)
[2022-12-09] MEDS: Chloraseptic Spray 180 ml Bottle PO SCH ×2 (13:08→13:09)
[2022-12-09] MEDS: Guaifenesin DM 100-10/5 ML UDCUP PO PRN (16:28)
[2022-12-09] MEDS: HumaLOG 300 UNITS/3 ML VIAL SC PRN (16:40)
[2022-12-09] MEDS: Atorvastatin Calcium 20 MG TAB PO SCH (20:39)
[2022-12-10 05:06] LABS: #Eosinphils 0.2 10x3/uL (0.0-0.5); #Monocytes 0.3 10x3/uL (0.0-1.1); #Neutrophils 6.2 10x3/uL (1.5-8.4); %Basophils 0.1 % (0.0-2.0); %Eosinophils 2.2 % (0.0-6.0); %Lymphocytes 8.4 % (18.0-47.0); %Monocytes 3.6 % (0.0-10.0); %Neutrophils 85.4 % (40.0-75.0); Hemoglobin 11.8 g/dL (12.0-15.5); Mean Corpuscular HGB CONC 31.6 g/dL (32.0-36.0); Mean Corpuscular Volume 88.4 fl (81.6-98.3); Mean Platelet Volume 10.1 fl (7.4-10.4); Platelet Count 270 10x3/uL (150-450); RBC Distribution Width 15.4 % (11.5-14.5); Red Blood Cell (RBC) Count 4.22 10x6/uL (3.90-5.03); White Blood Cell (WBC) Count 7.3 10x3/uL (3.5-10.5)
[2022-12-10 05:20] LABS: ALT (SGPT) 55 U/L (8-55); AST (SGOT) 39 U/L (5-34); Albumin 3.3 g/dL (3.4-4.8); Alkaline Phosphatase 211 U/L (40-110); Anion Gap 16 mmol/L (10-20); BUN (Urea Nitrogen) 19 mg/dL (9.8-20.1); Calc. Creatinine Clearance 56 mL/min (70-130); Calcium 8.8 mg/dL (7.8-10.44); Carbon Dioxide 37 mmol/L (23-31); Chloride 91 mmol/L (98-107); Estimated GFR 57; Globulin 3.3 g/dL (2.4-3.5); Glucose 149 mg/dL (83-110); Potassium 3.5 mmol/L (3.5-5.1); Protein, Total 6.6 g/dL (5.8-8.1); Sodium 140 mmol/L (136-145)
[2022-12-10] MEDS: Guaifenesin DM 100-10/5 ML UDCUP PO PRN (08:32)
[2022-12-10] MEDS: Furosemide 40 MG TAB PO SCH ×2 (08:33→14:48)
[2022-12-10] MEDS: Dronedarone HCl 400 MG TAB PO SCH (08:33)
[2022-12-10] MEDS: Empagliflozin 10 MG TAB PO SCH (08:33)
[2022-12-10] MEDS: Clopidogrel Bisulfate 75 MG TAB PO SCH (08:33)
[2022-12-10] MEDS: Sildenafil Citrate 20 MG TAB PO SCH ×3 (08:33→20:50)
[2022-12-10] MEDS: Apixaban 5 MG TAB PO SCH ×2 (08:33→20:50)
[2022-12-10] MEDS: Benzonatate 100 MG CAP PO PRN (08:33)
[2022-12-10] MEDS: Carvedilol 3.125 MG TAB PO SCH ×2 (08:33→17:30)
[2022-12-10] MEDS: Famotidine 20 MG TAB PO SCH (08:33)
[2022-12-10] MEDS: Lantus 1000 UNITS/10 ML VIAL SC SCH ×2 (08:34→20:51)
[2022-12-10] MEDS ORDERED: Ipratropium/Albuterol 3 ML NEB NEB PRN (09:32)
[2022-12-10] MEDS ORDERED: guaiFENesin ER 600 MG TAB PO SCH (09:45)
[2022-12-10] MEDS ORDERED: Ipratropium/Albuterol 3 ML NEB NEB SCH (09:45)
[2022-12-10] MEDS: HumaLOG 300 UNITS/3 ML VIAL SC PRN (12:39)
[2022-12-10] MEDS: Atorvastatin Calcium 20 MG TAB PO SCH (20:51)
[2022-12-10] MEDS: guaiFENesin ER 600 MG TAB PO SCH (20:51)
[2022-12-10] MEDS: Cepastat Lozenges 1 LOZ PO PRN (20:51)
[2022-12-11] MEDS: Cepastat Lozenges 1 LOZ PO PRN (00:18)
[2022-12-11] MEDS: Benzonatate 100 MG CAP PO PRN (01:48)
[2022-12-11 05:23] LABS: #Eosinphils 0.3 10x3/uL (0.0-0.5); #Monocytes 0.5 10x3/uL (0.0-1.1); #Neutrophils 5.7 10x3/uL (1.5-8.4); %Basophils 0.3 % (0.0-2.0); %Eosinophils 4.2 % (0.0-6.0); %Lymphocytes 12.1 % (18.0-47.0); %Monocytes 6.9 % (0.0-10.0); %Neutrophils 76.1 % (40.0-75.0); Hemoglobin 11.8 g/dL (12.0-15.5); Mean Corpuscular Hemoglobin 27.8 pg (27.0-33.0); Mean Corpuscular Volume 89.9 fl (81.6-98.3); Mean Platelet Volume 10.3 fl (7.4-10.4); Platelet Count 320 10x3/uL (150-450); RBC Distribution Width 15.4 % (11.5-14.5); Red Blood Cell (RBC) Count 4.24 10x6/uL (3.90-5.03); White Blood Cell (WBC) Count 7.4 10x3/uL (3.5-10.5)
[2022-12-11 05:31] LABS: ALT (SGPT) 43 U/L (8-55); AST (SGOT) 28 U/L (5-34); Albumin 3.3 g/dL (3.4-4.8); Alkaline Phosphatase 249 U/L (40-110); BUN (Urea Nitrogen) 18 mg/dL (9.8-20.1); Bilirubin, Total 0.9 mg/dL (0.2-1.2); Calc. Creatinine Clearance 56 mL/min (70-130); Calcium 9.1 mg/dL (7.8-10.44); Estimated GFR 57; Globulin 3.7 g/dL (2.4-3.5); Glucose 76 mg/dL (83-110)
[2022-12-11 05:39] LABS: Anion Gap 12 mmol/L (10-20); Carbon Dioxide 42 mmol/L (23-31); Chloride 93 mmol/L (98-107); Potassium 4.3 mmol/L (3.5-5.1); Sodium 143 mmol/L (136-145)
[2022-12-11] MEDS: Apixaban 5 MG TAB PO SCH (08:27)
[2022-12-11] MEDS: guaiFENesin ER 600 MG TAB PO SCH (08:27)
[2022-12-11] MEDS: Clopidogrel Bisulfate 75 MG TAB PO SCH (08:27)
[2022-12-11] MEDS: Dronedarone HCl 400 MG TAB PO SCH (08:27)
[2022-12-11] MEDS: Empagliflozin 10 MG TAB PO SCH (08:28)
[2022-12-11] MEDS: Carvedilol 3.125 MG TAB PO SCH (08:28)
[2022-12-11] MEDS: Furosemide 40 MG TAB PO SCH (08:28)
[2022-12-11] MEDS: Famotidine 20 MG TAB PO SCH (08:28)
[2022-12-11] MEDS: Sildenafil Citrate 20 MG TAB PO SCH (08:28)
[2022-12-11] MEDS: Lantus 1000 UNITS/10 ML VIAL SC SCH (08:29)
[2022-12-11 14:00] VITALS: BP 95/52; TEMP 97.7
== END 2022-12-11 15:34 | disposition home or self-care (01) | DRG 637 ==
LOC: CSHERS 03:38 → CSHIMCU 05:34 → CSHTELE 12-07 17:59
PROVIDERS: ADMIT Student in an Organized Health Care Education/Training Program; ATTEND Family Medicine
DX: E11.10 Type 2 diabetes mellitus with ketoacidosis without coma (principal); I21.A1 Myocardial infarction type 2; N17.9 Acute kidney failure, unspecified; J96.11 Chronic respiratory failure with hypoxia; I50.32 Chronic diastolic (congestive) heart failure; I48.19 Other persistent atrial fibrillation; Z20.822 Contact with and (suspected) exposure to COVID-19; R55 Syncope and collapse; I27.20 Pulmonary hypertension, unspecified; E78.5 Hyperlipidemia, unspecified; I65.22 Occlusion and stenosis of left carotid artery; I25.10 Atherosclerotic heart disease of native coronary artery without angina pectoris; Z95.5 Presence of coronary angioplasty implant and graft; I73.9 Peripheral vascular disease, unspecified; Z95.0 Presence of cardiac pacemaker; Z99.81 Dependence on supplemental oxygen; Z79.82 Long term (current) use of aspirin; Z79.4 Long term (current) use of insulin; Z79.02 Long term (current) use of antithrombotics/antiplatelets; Z79.899 Other long term (current) drug therapy; Z88.6 Allergy status to analgesic agent; Z88.8 Allergy status to other drugs, medicaments and biological substances; Z90.89 Acquired absence of other organs
CPT/HCPCS: 36415; 36416; 71045; 80048; 80053; 81003; 81015; 82010; 82553; 83735; 83880; 84484; 85025; 93005; 94640; 94760; 94762; 94799; 96365; 96372; J1650; J1815; J7042; J7050; J7620; U0002